=== PATIENT | male | born 1970 | race Two or more races ===

== ENCOUNTER 2022-06-30 03:15 | Emergency (ER) | payer MEDICARE ==
[~2022-06-30] VITALS: Ht 170.2 cm; Wt 122.3 kg
[2022-06-30] MEDS ORDERED: MONT-35 PO ×2 (03:35→06:29)
[2022-06-30] MEDS ORDERED: ALBU8HFA IH ×2 (03:35→06:29)
[2022-06-30] MEDS ORDERED: AMLO-258 PO ×2 (03:35→06:29)
[2022-06-30] MEDS ORDERED: METF-910 PO (03:36)
[2022-06-30 04:24] LABS: COVID AG,FIA SOURCE NASAL SWAB
[2022-06-30 04:26] LABS: BASOPHILS % (AUTO) 0.2 % (0.0-2.0); EOSINOPHILS % (AUTO) 8.7 % (1.0-6.0); HEMATOCRIT 45.8 % (41-53); HEMOGLOBIN 15.4 g/dL (13.5-17.5); LYMPHOCYTES # (AUTO) 3.1 K/uL (1.0-4.8); LYMPHOCYTES % (AUTO) 32.3 % (22.0-44.0); MEAN CORPUSCULAR HEMOGLOBIN 30.4 pg (26.0-34.0); MEAN CORPUSCULAR HGB CONC 33.7 G/dL (31.0-37.0); MEAN CORPUSCULAR VOLUME 90 fL (80-100); MONOCYTES # (AUTO) 0.6 K/uL (0.1-1.0); MONOCYTES % (AUTO) 6.5 % (2.0-9.0); NEUTROPHILS % (AUTO) 52.3 % (40.0-70.0); PLATELET COUNT (AUTO) 236 K/uL (150-450); RED BLOOD CELL COUNT(AUTO) 5.08 MIL/uL (4.50-5.90); RED CELL DISTRIBUTION WIDTH 14.3 % (11.5-14.5)
[2022-06-30 04:34] LABS: ANION GAP 8 mmol/L (8-16); CALCIUM, TOTAL 8.8 mg/dL (8.8-10.5); CARBON DIOXIDE 30 mmol/L (22-29); CHLORIDE 103 mmol/L (98-107); CREATININE 1.13 mg/dL (0.60-1.30); GLUCOSE,RANDOM 261 mg/dL (70-110); POTASSIUM 3.5 mmol/L (3.5-5.1); SODIUM SERUM 141 mmol/L (136-145); UREA NITROGEN, BLOOD 10 mg/dL (7-18)
[2022-06-30 04:37] LABS: GLOMERULAR FILTR. RATE CALC > 60 mL/min (>60)
[2022-06-30 04:40] LABS: ALANINE AMINOTRANSFERASE 95 U/L (12-78); ALBUMIN 4.1 g/dL (3.4-5.0); ALKALINE PHOSPHATASE 126 U/L (46-116); ASPARTATE AMINOTRANSFERASE 39 U/L (15-37); BILIRUBIN,TOTAL 0.7 mg/dL (0.1-1.0); TOTAL PROTEIN, SERUM 7.5 g/dL (6.4-8.2)
[2022-06-30 04:53] LABS: B-TYPE NATRIURETIC PEPTIDE < 5 pg/mL (0-100)
[2022-06-30] MEDS ORDERED: IBUP-1554 PO (06:29)
[2022-06-30] MEDS ORDERED: METF-1211 PO (06:29)
[2022-06-30] MEDS ORDERED: PRED-554 PO (06:29)
[2022-06-30] MEDS ORDERED: LOSA-382 PO (06:29)
[2022-06-30] MEDS ORDERED: FLUT1BLS9 IH (06:29)
[2022-06-30] MEDS ORDERED: TRAM-559 PO (06:29)
[2022-06-30] MEDS ORDERED: MELO-381 PO (06:29)
[2022-06-30] MEDS ORDERED: ALBUTEROL SULFATE HFA 90 MCG/PUFF 8 GM INHALER IH ONE (06:30)
[2022-06-30 06:44] VITALS: BP 150/89
== END 2022-06-30 06:49 | disposition home or self-care (01) ==
LOC: EMS 03:16
DX: J45.901 Unspecified asthma with (acute) exacerbation (principal); I10 Essential (primary) hypertension; G89.29 Other chronic pain; M54.50 Low back pain, unspecified; R79.89 Other specified abnormal findings of blood chemistry; E11.65 Type 2 diabetes mellitus with hyperglycemia; Z20.822 Contact with and (suspected) exposure to COVID-19
CPT/HCPCS: 71045; 80053; 82962; 83880; 84484; 85025; 93005; 94640; 99284; J3535; 36415-L1; 36415-TC

== ENCOUNTER 2022-06-30 13:11 | Emergency (ER) | payer MEDICARE ==
[~2022-06-30] VITALS: Ht 175.3 cm; Wt 118.2 kg
[~2022-06-30 13:11] MED LIST: ALBU8HFA IH; AMLO-258 PO; FLUT1BLS9 IH; IBUP-1554 PO; LOSA-382 PO; MELO-381 PO; METF-1211 PO; METF-910 PO; MONT-35 PO; PRED-554 PO; TRAM-559 PO
[2022-06-30 14:41] LABS: BASOPHILS % (AUTO) 0.5 % (0.0-2.0); EOSINOPHILS % (AUTO) 6.2 % (1.0-6.0); HEMATOCRIT 43.8 % (41-53); HEMOGLOBIN 14.9 g/dL (13.5-17.5); LYMPHOCYTES # (AUTO) 2.9 K/uL (1.0-4.8); LYMPHOCYTES % (AUTO) 25.3 % (22.0-44.0); MEAN CORPUSCULAR HEMOGLOBIN 30.4 pg (26.0-34.0); MEAN CORPUSCULAR HGB CONC 34.1 G/dL (31.0-37.0); MEAN CORPUSCULAR VOLUME 89 fL (80-100); MONOCYTES # (AUTO) 0.6 K/uL (0.1-1.0); MONOCYTES % (AUTO) 5.2 % (2.0-9.0); NEUTROPHILS # (AUTO) 7.1 K/uL (1.8-7.7); NEUTROPHILS % (AUTO) 62.8 % (40.0-70.0); PLATELET COUNT (AUTO) 244 K/uL (150-450); RED BLOOD CELL COUNT(AUTO) 4.92 MIL/uL (4.50-5.90); RED CELL DISTRIBUTION WIDTH 14.1 % (11.5-14.5)
[2022-06-30 14:54] LABS: ANION GAP 8 mmol/L (8-16); CALCIUM, TOTAL 9.3 mg/dL (8.8-10.5); CARBON DIOXIDE 26 mmol/L (22-29); CHLORIDE 101 mmol/L (98-107); CREATININE 1.17 mg/dL (0.60-1.30); GLUCOSE,RANDOM 324 mg/dL (70-110); POTASSIUM 3.1 mmol/L (3.5-5.1); PROTHROMBIN TIME 10.9 SEC (9.4-11.6); SODIUM SERUM 135 mmol/L (136-145); UREA NITROGEN, BLOOD 11 mg/dL (7-18)
[2022-06-30 14:55] LABS: B-TYPE NATRIURETIC PEPTIDE 6 pg/mL (0-100); GLOMERULAR FILTR. RATE CALC > 60 mL/min (>60)
[2022-06-30 15:00] LABS: ALANINE AMINOTRANSFERASE 91 U/L (12-78); ALBUMIN 3.8 g/dL (3.4-5.0); ALKALINE PHOSPHATASE 126 U/L (46-116); ASPARTATE AMINOTRANSFERASE 46 U/L (15-37); BILIRUBIN,TOTAL 0.8 mg/dL (0.1-1.0); TOTAL PROTEIN, SERUM 7.2 g/dL (6.4-8.2)
[2022-06-30 17:37] VITALS: BP 152/80
[2022-06-30 17:51] LABS: APPEARANCE,URINE CLEAR (CLEAR); BILIRUBIN,URINE NEGATIVE (NEGATIVE); GLUCOSE, URINE (UA) >=1000 mg/dL (NEGATIVE); KETONES,URINE TRACE mg/dL (NEGATIVE); LEUKOCYTE ESTERASE ,URINE NEGATIVE (NEGATIVE); NITRATE,URINE NEGATIVE (NEGATIVE); OCCULT BLOOD,URINE NEGATIVE (NEGATIVE); PROTEIN,URINE NEGATIVE (NEGATIVE); SPECIFIC GRAVITIY, URINE 1.034 (1.003-1.030)
[2022-06-30 17:55] LABS: BACTERIA,URINE None Seen /HPF (None Seen); RBC,URINE 0-2 /HPF (0-2); SQUAMOUS EPITHELIAL CELL,UR Few /LPF (None Seen); WBC,URINE 0-2 /HPF (0-5)
== END 2022-06-30 17:51 | disposition home or self-care (01) ==
LOC: EMS 13:14
DX: R07.89 Other chest pain (principal); J45.909 Unspecified asthma, uncomplicated; E11.9 Type 2 diabetes mellitus without complications; I10 Essential (primary) hypertension; Z76.5 Malingerer [conscious simulation]
CPT/HCPCS: 71045; 80053; 81001; 83880; 84484; 85025; 85610; 85730; 93005; 99284; 36415-L1; 36415-TC